=== PATIENT | female | born 1940 | race Caucasian/White ===

== ENCOUNTER → 2021-12-14 14:04 | Outpatient (BNVA) | payer OTHER, SELFPAY | PROVIDERS: Visit Provider Family Medicine | DX: S80.11XA Contusion of right lower leg, initial encounter (principal); V49.9XXA Car occupant (driver) (passenger) injured in unspecified traffic accident, initial encounter; M25.80 Other specified joint disorders, unspecified joint | CPT/HCPCS: 73590 ==

== ENCOUNTER 2024-02-22 14:28 | Emergency (ER) | payer MEDICARE, MEDICAID, SELFPAY ==
[2024-02-22 14:32] VITALS: BP 185/110; PULSE 95; TEMP 36.6; O2SAT 98; BMI 14.1
--- NOTE | 2024-02-22 14:39 | CTR_ITS ---
PROCEDURE INFORMATION: Exam: CT Head Without Contrast Exam date and time: 02/22/2024 3:36 PM Age: 83 years old Clinical indication: Injury or trauma; Fall; Blunt trauma (contusions or hematomas); Additional info: Fall, head injury TECHNIQUE: Imaging protocol: Computed tomography of the head without contrast. Radiation optimization: All CT scans at this facility use at least one of these dose optimization techniques: automated exposure control; mA and/or kV adjustment per patient size (includes targeted exams where dose is matched to clinical indication); or iterative reconstruction. COMPARISON: CT cervical spin wo con* [id number] 02/22/2024 3:36 PM RADIATION DOSE METRICS: Total DLP (mGy-cm): 1735.4 FINDINGS: Brain: Bilateral periventricular white matter and centrum semiovale hypodensities consistent with chronic ischemic small vessel disease. 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 No recent large territorial infarct, intracranial bleed or mass effect. Cerebral ventricles: No ventriculomegaly. Paranasal sinuses: Frothy secretions in the sphenoid sinus. Mastoid air cells: Visualized mastoid air cells are well aerated. Bones: Unremarkable. No acute fracture. Soft tissues: There is a left frontotemporal subgaleal hematoma. CT/CT head wo con* [id number] IMPRESSION: No intracranial posttraumatic changes.
--- NOTE | 2024-02-22 14:40 | CTR_ITS ---
PROCEDURE INFORMATION: Exam: CT Cervical Spine Without Contrast Exam date and time: 02/22/2024 3:36 PM Age: 83 years old Clinical indication: Injury or trauma; Fall; Blunt trauma; Additional info: Fall, neck pain TECHNIQUE: Imaging protocol: Computed tomography of the cervical spine without contrast. Radiation optimization: All CT scans at this facility use at least one of these dose optimization techniques: automated exposure control; mA and/or kV adjustment per patient size (includes targeted exams where dose is matched to clinical indication); or iterative reconstruction. COMPARISON: CT head wo con* [id number] 02/22/2024 3:36 PM RADIATION DOSE METRICS: Total DLP (mGy-cm): 192.3 FINDINGS: Bones: There is demineralization of the visualized bones. Mild compression deformity of the C6, T3 and T4 vertebral bodies with no retropulsion. Mild anterolisthesis of C2 over C3. Fusion of the C3-C4 disc. Mild retrolisthesis of C4 over C5. Mild anterolisthesis of C5 over C6. Paranasal sinuses: Frothy secretions in the sphenoid sinuses. Pharynx: Bilateral palatine tonsil calcifications, from prior tonsillitis.. Lungs: Bilateral apical fibrotic changes. Thyroid: Enlarged right thyroid containing multiple nodules measuring up to 6 mm. Vasculature: Bilateral carotid calcifications. Soft tissues: Unremarkable. CT/CT cervical spin wo con* [id number] IMPRESSION: Age-indeterminate mild compression fractures of the T3 and T4 vertebral bodies. No retropulsion.
--- NOTE | 2024-02-22 14:41 | W.ED.HEATRA ---
Documented by User: Jeannie Landon MD 02/22/24 17:01 HPI - Head Injury General: Chief complaint: Head Injury Stated complaint: FACIAL INJURIES S/P FALL Time Seen by Provider: 02/22/24 14:36 History of Present Illness: 83-year-old female who presents to the emergency room by ambulance after having fallen forward out of her wheelchair. She hit her head and has a large laceration on her left forehead. This is a sort of a gaping wound. No loss of consciousness. She is not on any anticoagulation. No nausea or vomiting. She has some dementia but appears at her baseline. Review of Systems General: Reports: ROS unobtainable due to medical condition Narrative: Physical Exam Narrative: EXAM NARRATIVE: General: Alert, no acute distress. Skin: warm and dry Head: Normocephalic Neck: Trachea midline Eye: Extraocular movements are intact. Ears, nose, mouth and throat: Oral mucosa moist Respiratory: Respirations are non-labored Musculoskeletal: Normal ROM Neurological: Alert, No focal neurological deficit observed. Psychiatric: Cooperative, appropriate mood & affect. Course Vital Signs: Vital signs: Vital Signs Temperature 97.9 F 02/22/24 14:32 Pulse Rate 95 02/22/24 14:32 Blood Pressure 185/110 02/22/24 14:32 Pulse Oximetry 98 02/22/24 14:32 Oxygen Delivery Me thod Room Air 02/22/24 14:32 MDM - Head Injury Medcial Decision Making Medical decision making: Differential diagnosis including but not limited to and based on the above HPI, review of systems and physical exam: patient with fall and head injury. Subdural hematoma, subarachnoid hemorrhage, concussion, skull fracture. CT of the head was ordered to evaluate. Given patient's dementia CT of the C-spine was ordered as well. Orders placed to evaluate differential diagnosis based on the above differential, HPI and physical exam CT head: No acute intracranial process. no intracranial hemorrhage, no evidence of infarct. no evidence of acute fracture.This was reviewed and interpreted by myself the ER physician. CT of the cervical spine: Degenerative changes, old compression fractures,. Good alignment. No step-offs. This was reviewed and interpreted by myself the emergency room physician. I also reviewed the radiologist report. I reviewed the patient's medical record. Assessment and plan: Head injury Forehead laceration -Laceration repair by DRAFTING LAYOUT WORKER. -Tetanus updated - Discharged home - Discussed plan with patient. Answered any questions. - Evaluation and treatment of this problem were appropriate in the emergency setting. Lab Data Radiology Impressions Head CT 02/22/24 14:39 IMPRESSION: No intracranial posttraumatic changes. Cervical Spine CT 02/22/24 14:40 IMPRESSION: Age-indeterminate mild compression fractures of the T3 and T4 vertebral bodies. No retropulsion. All radiology interpretation(s) finalized by discharge Discharge Plan Discharge Patient Disposition: Home Clinical Impression: Head injury, Laceration of forehead Prescriptions: No Action oxycodone-acetaminophen 10-325 mg tablet PO tramadol 50 mg tablet PO trazodone 50 mg tablet PO quetiapine 25 mg tablet PO carvedilol 12.5 mg tablet 12.5 mg PO BID Rx Instructions: must administer with a meal/food omeprazole 40 mg capsule,delayed release(DR/EC) 40 mg PO BID atorvastatin 40 mg tablet 40 mg PO DAILY Discharge Orders: Discharge ED (Routine); Ordered 02/22/24 Ordered By: Jeannie Landon Referrals: Tania Goldberg, RHEUMATOLOGIST [Primary Care Provider] - (Keep the area clean and dry, wash twice per day with antibacterial soap and water. Return to the ED or PCP in 7-10 days for suture removal. You have been screened and evaluated and felt safe for discharge. Health conditions do change or evolve sometimes and as such it is important that you follow up with your Primary Doctor to be re checked, 3-5 days is a general good time frame for follow up. You are always welcome to return to the ED for re assessment if your symptoms are worsening or you have new concerns) Discharge Diet: Usual diet Discharge Activity: Resume usual activity Patient Instructions: Care For Your Stitches (ED), Fall Prevention for Older Adults (ED) Coding Level of Care Code ED Groundskeeping Maintenance Worker for [employer] Documented by User: JUDITH Luciano 02/22/24 17:27 HPI - Head Injury General: Chief complaint: Head Injury Stated complaint: FACIAL INJURIES S/P FALL Time Seen by Provider: 02/22/24 14:36 Procedures Laceration Laceration 1: Site: scalp Side (If applicable): left Size (cm): 4 Description: flap Depth: simple, single layer Local Anesthetic: lidocaine 1% and with epi Amount of anesthesia used (mL): 5 Pre-repair: wound explored and irrigated extensively Skin layer closed with: nylon Size (cm): 5-0 Number of sutures: 9 Technique: simple, interrupted Course ED course: 1514, wound to the frontal scalp was repaired with sutures, Laron Bruce nurse practitioner. Vital Signs: Vital signs: Vital Signs Temperature 97.9 F 02/22/24 14:32 Pulse Rate 95 02/22/24 14:32 Blood Pressure 185/110 02/22/24 14:32 Pulse Oximetry 98 02/22/24 14:32 Oxygen Delivery Me thod Room Air 02/22/24 14:32 MDM - Head Injury Lab Data Radiology Impressions Head CT 02/22/24 14:39 IMPRESSION: No intracranial posttraumatic changes. Cervical Spine CT 02/22/24 14:40 IMPRESSION: Age-indeterminate mild compression fractures of the T3 and T4 vertebral bodies. No retropulsion. Discharge Plan Discharge Patient Disposition: Home Clinical Impression: Head injury, Laceration of forehead Prescriptions: No Action oxycodone-acetaminophen 10-325 mg tablet PO tramadol 50 mg tablet PO trazodone 50 mg tablet PO quetiapine 25 mg tablet PO carvedilol 12.5 mg tablet 12.5 mg PO BID Rx Instructions: must administer with a meal/food omeprazole 40 mg capsule,delayed release(DR/EC) 40 mg PO BID atorvastatin 40 mg tablet 40 mg PO DAILY Discharge Orders: Discharge ED (Routine); Ordered 02/22/24 Ordered By: Jeannie Landon Referrals: Tania Goldberg, RHEUMATOLOGIST [Primary Care Provider] - (Keep the area clean and dry, wash twice per day with antibacterial soap and water. Return to the ED or PCP in 7-10 days for suture removal. You have been screened and evaluated and felt safe for discharge. Health conditions do change or evolve sometimes and as such it is important that you follow up with your Primary Doctor to be re checked, 3-5 days is a general good time frame for follow up. You are always welcome to return to the ED for re assessment if your symptoms are worsening or you have new concerns) Discharge Diet: Usual diet Discharge Activity: Resume usual activity Patient Instructions: Care For Your Stitches (ED), Fall Prevention for Older Adults (ED) Coding Level of Care Code ED Groundskeeping Maintenance Worker for Qing Dennis
[2024-02-22] MEDS: lidocaine-epi 1% 20 mL INJ 10 ML INJECTION (15:42)
[2024-02-22] MEDS: tetanus-dipt-pertussis 0.5 mL SDV IM (15:42)
[2024-02-22 19:30] VITALS: BP 170/100; PULSE 100; RESP 16; O2SAT 95
== END 2024-02-22 19:36 | disposition home or self-care (01) ==
PROVIDERS: Emergency Provider Emergency Medicine; PCP Nurse Practitioner Family
DX: S01.81XA Laceration without foreign body of other part of head, initial encounter (principal); W05.0XXA Fall from non-moving wheelchair, initial encounter; Z23 Encounter for immunization
CPT/HCPCS: 12013; 70450; 72125; 90715; 99285